=== PATIENT | female | born 1990 | race Caucasian/White ===

== ENCOUNTER 2018-07-09 12:22 | Observation (INO) ==
[2018-07-09 13:31] LABS: Amphetamine Screen,Urine Negative ng/mL (Cutoff=1000); Barbiturate Screen,Urine Negative ng/mL (Cutoff=200); Benzodiazepines Screen,Urine Negative ng/mL (Cutoff=200); Cannabinoid Screen,Urine Negative ng/mL (Cutoff = 50); Cocaine Screen,Urine Negative ng/mL (Cutoff= 300); Opiate Screen,Urine Negative ng/mL (Cutoff=300); Phencyclidine Screen,Urine Negative ng/mL (Cutoff=25)
== END 2018-07-09 15:35 | disposition home or self-care (01) ==
LOC: 1NENULAB
PROVIDERS: ADMIT Obstetrics & Gynecology; ATTEND Obstetrics & Gynecology

== ENCOUNTER 2018-07-16 07:55 | Inpatient (IN) ==
[2018-07-16] MEDS ORDERED: Metoclopramide 10 MG/2 ML VIAL IVP PRN (09:08)
[2018-07-16] MEDS ORDERED: Naloxone 0.4 MG/ML INJ IVP PRN (09:08)
[2018-07-16] MEDS ORDERED: Lidocaine 1% 20 ML MDV INFILT PRN (09:08)
[2018-07-16] MEDS ORDERED: Famotidine 20 MG/2 ML VIAL IVP PRN (09:08)
[2018-07-16] MEDS ORDERED: Ondansetron 4 MG/2 ML VIAL IVP PRN (09:08)
[2018-07-16] MEDS ORDERED: *HR* Nalbuphine 10 MG/ML AMPUL IVP PRN (09:08)
[2018-07-16] MEDS ORDERED: Ringers Solution, Lactated 1,000 ML IVC SCH (09:15)
[2018-07-16 09:30] LABS: Basophils % 0.2 %; Eosinophils # 0.1 K/mcL (0.0-0.6); Eosinophils % 0.6 %; Hematocrit 36.8 % (35.3-44.9); Hemoglobin 12.7 g/dL (11.5-15.4); Immature Granulocytes % 0.6 % (0-4); Lymphocytes # 1.9 K/mcL (0.6-4.6); Lymphocytes % 15.1 %; Mean Corpuscular HGB Conc 34.5 g/dL (31.6-35.5); Mean Corpuscular Hemoglobin 31.9 pg (28.0-33.3); Mean Corpuscular Volume 92.5 fL (83.0-100.0); Mean Platelet Volume 11.5 fL (9.4-12.4); Monocytes # 0.8 K/mcL (0.0-1.3); Monocytes % 6.4 %; Neutrophils # 9.6 K/mcL (1.6-8.9); Platelet Count 218 K/mcL (140-400); Red Blood Count 3.98 M/mcL (3.82-4.97); Red Cell Distribution Width 12.9 % (11.5-14.5); Segmented Neutrophils % 77.1 %
[2018-07-16 09:43] LABS: Amphetamine Screen,Urine Negative ng/mL (Cutoff=1000); Barbiturate Screen,Urine Negative ng/mL (Cutoff=200); Benzodiazepines Screen,Urine Negative ng/mL (Cutoff=200); Cannabinoid Screen,Urine Negative ng/mL (Cutoff = 50); Cocaine Screen,Urine Negative ng/mL (Cutoff= 300); Opiate Screen,Urine Negative ng/mL (Cutoff=300); Phencyclidine Screen,Urine Negative ng/mL (Cutoff=25)
--- NOTE | 2018-07-16 09:56 | Anesthesia Evaluation PreOp ---
Date of Encounter: 07/16/18 Time of Encounter: 09:54 - Past History Planned Operation: YOLIE Cardiac History: Denies any Significant Hx Pulmonary History: Former smoker [employer] DEVELOPER History: Denies Any Significant HX Other Medical History: Denies Any Significant HX Anesthesia History: No Prior Anesthetic Complications (never had any procedure requiring NA; denies personal and family h/o GA complications) : Yes Alcohol Use: none Drug use: marijuana Medications and Allergies One Tablet 1 tab PO DAILY 04/16/18 [History] 3 Allergy/AdvReac Type Severity Reaction Status Date / Time No Known Allergies Allergy Verified 04/16/18 12:22 - Meds/Allergy Pre-op Review Medications Reviewed: Yes Allergies Reviewed: Yes Beta Blockers on Current Med List: No Anesthesia Results - Labs 07/16/18 08:52 Anesthesia Exam 130/82, HR 80, RR 16 O2 Sat Height 1.6 m Weight 94.3 kg Vital Signs Temp Pulse Resp BP 97.1 F L 90 15 135/91 07/16/18 08:11 07/16/18 08:11 07/16/18 08:11 07/16/18 08:11 NPO (# of Hours): since 07/16/2018 @0700 Pain Scale: 0 Pain Scale Used: Numeric (1 - 10) - HEENT Pupil (Motor): Pupils equal Mallampati: I Teeth: Normal Oral Opening: Greater than 3 - [employer] DEVELOPER LOC: Oriented [employer] Motor: Normal RUE, Normal LUE, Normal RLE, Normal LLE, Normal Face [employer] Sensory: Normal: RUE, LUE, RLE, LLE, Face - Cardiac Rhythm: Regular Murmur: None - Pulmonary Breath Sounds: bilateral Clear Respiratory Effort: Symmetrical Anesthesia Assess/Plan ASA Score: 2 Modified Livia Scale for Level of Consciousness: Cooperative, oriented, and tranquil Anesthetic Plan: Regional Autologous Blood: No Monitoring Plan: Standard Monitors Recovery Plan: Other
[2018-07-16] MEDS ORDERED: Bupivacaine-MPF 0.25% 10 ML VIAL EP ONE (09:57)
[2018-07-16] MEDS ORDERED: *HR* FentaNYL (PF) 100 MCG/2 ML VIAL EP ONE (09:57)
[2018-07-16] MEDS: miSOPROStol 100 MCG TABLET PO PRN ×2 (09:58→15:43)
[2018-07-16] MEDS ORDERED: Epidural Premix (fent/bupiv) 110 ML EP SCH (10:00)
[2018-07-16] MEDS ORDERED: Lidocaine -MPF 1% 5 ML AMPUL ONE (10:05)
--- NOTE | 2018-07-16 10:40 | OB/GYN History & Physical ---
Date of Encounter: 07/16/18 Time of Encounter: 10:34 Assessment and Plan (1) Encounter for induction of labor Current visit: Yes Status: Acute Cytotec initiated Pain management as necessary Plan for (2) 40 weeks gestation of Current visit: Yes Status: Acute Post date induction History of Present Illness HPI: Ms. Melendrez is a 28 year old female with care by Dr. Briscoe who presents at 40 weeks for post term induction of labor. She has a history of intermittent elevated blood pressure requiring no medications. Takes only a vitamin. States she believes she lost her mucus plug last night but no other vaginal bleeding or fluid leakage. Reports good movement. Denies headache, visual changes or worsening edema. Had right hand surgery without anesthesia complications. GBS negative O positive Varicella/Rubella immune Other serologies negative Past Med Surg Social Fam HX - Past Medical History Attestation: Yes The following information was validated with the patient. Source: old records reviewed Medical history: no medical history Psychiatric history: no psych history - Past Surgical History Additional surgical history: right hand middle finger tendon repair - Social History Smoking Status: Former smoker Smokeless Tobacco Status: No Alcohol use: none Drug use: marijuana - Family History Mother Adopted: No Family Member Ethnicity: Non- Living Status: Still Living Hx Family Cardiac Disorders: No Hx Family Respiratory Disorders: No Hx Family Cancer: No Hx Family GI Disorders: No Hx Family Genitourinary Disorders: No Hx Family Endocrine Disorder: No Hx Family Musculoskeletal Disorders: No Hx Family Neuromuscular Disorders: No Hx Family Neurologic Disorders: No Hx Family HEENT Disorders: No Hx Family Autoimmune Disorders: No Hx Family Reproductive Disorders: No Hx Family Psychosocial Disorders: No Hx Family Medical Disorders: No Obstetrical History - Pregnancies : 1 Medications and Allergies One Tablet 1 tab PO DAILY 04/16/18 [History] 3 Allergy/AdvReac Type Severity Reaction Status Date / Time No Known Allergies Allergy Verified 04/16/18 12:22 Review of System OB All systems PM: reviewed and no additional remarkable complaints except as stated Exam - Vital Signs Vital signs: Initial Vital Signs Temp Pulse Resp BP 97.1 F L 90 15 135/91 07/16/18 08:11 07/16/18 08:11 07/16/18 08:11 07/16/18 08:11 - Constitutional Constitutional: well developed, well nourished, no acute distress, average body habitus - HEENT HEENT: Normocephaly, Mucus Membranes Moist - Lungs Respiratory exam: CTAB - Cardiovascular Cardiovascular exam: RRR, +S1, +S2 - Abdomen Abdomen: Present: bowel sounds normal, gravid, non tender - Extremities Deep Tendon Reflex Grade: 2+ Normal - Cervix Dilation: 0 (per RN) Effacement: 0 (per RN) Station: -2 - Uterus Uterus exam: Present: normal size Results Result Diagrams: 07/16/18 08:52 Abnormal lab results WBC 12.4 K/mcL (4.3-11.1) H 07/16/18 08:52 Neutrophils # 9.6 K/mcL (1.6-8.9) H 07/16/18 08:52 All other labs normal. - VTE Reasons for not Prescribing Prophylaxis: Treatment not Indicated - Low risk for VTE - Attending Attestation I examined this patient and my medical decision-making was reviewed with the Resident Physician. I agree with the documented findings, disposition and treatment plan as described except to the extent set forth below. Jefferson Torres
--- NOTE | 2018-07-16 12:33 | OB Labor Progress Note ---
Date of Encounter: 07/16/18 Time of Encounter: 12:31 Labor Progress Note - Cervix Cervix: FT/25 / -2 - Heart Tones Heart Tones: CAT 1 - Interventions Interventions: Continue induction
--- NOTE | 2018-07-16 14:33 | OB Labor Progress Note ---
Date of Encounter: 07/16/18 Time of Encounter: 14:30 Labor Progress Note - Subjective Subjective: Patient breathing through contractions - Vital Signs Vital Signs: VSS - Cervix Cervix: 1/80/-2 - Heart Tones Heart Tones: Baseline 135 - Category I - Donovan Donovan: Contractions every 2 - 4 minutes palpate mild to moderate - Interventions Interventions: Intracervical castillo placed without difficulty - 45 mL of sterile water infused. Patient and fetus tolerated well. - Plan Plan: Continue routine labor management GBS negative Patient may have nubain/epidural upon request Consider AROM vs pitocin for augmentation after castillo removed Anticipate vaginal delivery POC per consult with Dr Briscoe
--- NOTE | 2018-07-16 18:57 | Anesthesia Procedures ---
Date of Encounter: 07/16/18 Time of Encounter: 18:40 Procedures: Anesthesia - Epidural/Spinal Patient ID/Chart reviewed: Yes Patient examined: Yes OB Eval: Gestational age: 40 weeks 4 days OB Eval: : 1 OB Eval: Hx Para: 0 OB Eval: Dilated at (cm): 4 OB Eval: Contractions: Non-stressed pattern Consent Obtained: Yes Supplemental Oxygen: None/Room Air Site Prep: Aseptic Technique, Sterile prep and drape, Povidone-Iodine 1% Patient position: upright Local Anesthetic: Lidocaine 1% Amount of Local Anesthetic used: 8 Touhy Needle Gauge: 18 Touhy Needle Depth (cm): 5 Catheter Depth at Skin (cm): 10 Test Dose (1.5% Lido + Epi): Volume given (mls): 5 Test Dose Result: Negative Loading Dose: 0.25% Marcaine (mls): 5 Loading Dose: Fentanyl (mcg): 100 Loading Dose Administered: Thru Catheter Infusion Med: 0.125% Bupivacaine w/ 2 mcg/ml Fentanyl Infusion Rate (mls/hr): 14 (w/ demand bolus of 5mL q30min PRN) Catheter Secured in Place: Tegaderm, Tape Interspace Used: L4-L5 Loss of Resistance (PAYAL): Yes Blood: No CSF: No Paresthesia: No Procedure: successful on 2nd attempt at L4/5 interspace; patient tolerated procedure well; VSS Vitals + FHT's: please see Shani MILTON's electronic records for VS entry
[2018-07-16] MEDS ORDERED: *HR* Phenylephrine 10 MG/ML VIAL ONE (19:20)
[2018-07-16] MEDS ORDERED: Oxytocin 20 units/ LR 1000 mL 20 UNIT/1,000 ML BAG IVC SCH (20:00)
--- NOTE | 2018-07-16 20:44 | OB Labor Progress Note ---
Date of Encounter: 07/16/18 Time of Encounter: 20:38 Labor Progress Note - Subjective Subjective: Patient resting comfortably in bed. - Vital Signs Vital Signs: VSS - Cervix Cervix: 6-7/80/-2 - Heart Tones Heart Tones: 155 moderate variability with accels - discussed tracing with Dr Briscoe - [place]: Contractions every 2-4 minutes - Interventions Interventions: AROM for moderate amount of moderate stained meconium fluid. IUPC and FSE placed without difficulty; fetus and patient tolerated well. - Plan Plan: Continue with routine labor management GBS negative Titrate pitocin for adequate labor Anticipate vaginal delivery POC per consult with Dr Briscoe
--- NOTE | 2018-07-16 21:03 | Anesthesia Progress Note ---
Date of Encounter: 07/16/18 Time of Encounter: 21:01 Anesthesia Note - Note Note: called to patient's bedside to evaluate breakthrough pain. A total of 15mL of 0.2% ropivicaine + 100mcg fentanyl required to make patient have significant improvement in pain score. VSS 07/16/18 21:01
[2018-07-17] MEDS ORDERED: Terbutaline 1 MG/ML VIAL SQ ONE (01:32)
[2018-07-17] MEDS ORDERED: Chloroprocaine/PF 20 ML VIAL INFILT ONE ×2 (01:43→02:12)
[2018-07-17] MEDS ORDERED: *HR* FentaNYL (PF) 100 MCG/2 ML VIAL ONE (01:44)
--- NOTE | 2018-07-17 01:52 | OB Labor Progress Note ---
Date of Encounter: 07/17/18 Time of Encounter: 01:40 Labor Progress Note - Cervix Cervix: 6-790/-1 - Heart Tones Heart Tones: CAT 2 - Plan Plan: Will procede with 1' LTCS . R/B discussed .
[2018-07-17] MEDS ORDERED: *HR* Midazolam HCl 2 MG/2 ML VIAL ONE (02:31)
[2018-07-17] MEDS ORDERED: Ondansetron 4 MG/2 ML VIAL IVP PRN ×2 (02:42→05:36)
[2018-07-17] MEDS ORDERED: Acetaminophen IV 1,000 MG/100 ML INFUS..BTL IVPB ONE (02:42)
[2018-07-17] MEDS ORDERED: Naloxone 0.4 MG/ML INJ IVP PRN ×2 (02:42→05:57)
[2018-07-17] MEDS ORDERED: *HR* Promethazine 25 MG/ML VIAL IVP PRN (02:42)
[2018-07-17] MEDS ORDERED: *HR* Phenylephrine 10 MG/ML VIAL ONE (02:53)
[2018-07-17] MEDS ORDERED: *HR* Oxytocin 10 UNIT/ML VIAL IM ONE (02:54)
[2018-07-17] MEDS ORDERED: *HR* Morphine Sulfate/PF 10 MG/10 ML AMPUL ONE (03:13)
--- NOTE | 2018-07-17 03:34 | OB/GYN Procedure Note ---
Section - Date of procedure: 07/17/18 Preop diagnosis: category 2 FHT tracing Post-op diagnosis: same Procedure: primary low transverse Surgeon: Jefferson Torre Blood Loss: 500 Was there an assisted living assistant present: Yes Carburetor Mechanic: Angelica Rodriguez Anesthesiologist: Ugo Alejandra Anesthesia Type: Epidural section complications: none Disposition: PACU Specimens: Placenta - Infant (s) Infant A Infant Delivery Date: 07/17/18 Delivery Time: 02:29 Presentation: vertex Position: BOOGIE Gender: Male Viability: Viable Pounds: 7 Ounces: 15 at 1 minute: 8 at 5 minutes: 9 Specimens collected: cord blood Placenta: complete extraction - Narrative Narrative: Patient was taken to the operating room. She was prepped and draped in usual manner. After appropriate timeout, abdomen was entered through standard Maylard incision. The Peggy retractor was placed. Peritoneum overlying the lower uterine segment was incised in U-shaped fashion. Uterine cavity was entered sharply and extended laterally. Fluid was meconium-stained. With fundal pressure, the head was delivered. suctioned upon delivery of the head. The remainder of the infant was delivered. The umbilical cord doubly clamped and cut and the infant was handed to nursery staff for further evaluation. Placenta was removed and sent to pathology for analysis. Uterus was closed with 0 Monocryl in a single layer. After assurance of hemostasis, the retractor was removed. The abdomen was closed standard fashion using 0 PDS on the fascia and 3-0 Monocryl in the skin. Sterile dressing was applied. Patient taken to recovery in satisfactory condition. Counts were correct.
[2018-07-17] MEDS: *HR* HYDROmorphone (PF) 1 MG/ML SYRINGE IVP PRN ×2 (03:45→04:10)
[2018-07-17] MEDS ORDERED: Acetaminophen 325 MG TABLET PO PRN (05:36)
[2018-07-17] MEDS ORDERED: Sennosides 8.6 MG TABLET PO PRN (05:36)
[2018-07-17] MEDS ORDERED: Simethicone 80 MG TAB.CHEW PO PRN (05:36)
[2018-07-17] MEDS ORDERED: Oxytocin 20 units/ LR 1000 mL 20 UNIT/1,000 ML BAG IVC SCH (05:36)
[2018-07-17] MEDS ORDERED: Metoclopramide 10 MG/2 ML VIAL IVP PRN (05:36)
--- NOTE | 2018-07-17 05:58 | Anesthesia Evaluation Post Op ---
Date of Encounter: 07/17/18 Time of Encounter: 05:58 - Vital Signs Vital Signs: Vital Signs/O2 Sat, Most Current Temp Pulse Resp BP Pulse Ox 98.1 F 81 16 119/66 98 07/17/18 05:30 07/17/18 05:30 07/17/18 05:30 07/17/18 05:30 07/17/18 05:30 - Lungs Lungs: Clear Ascult./Percussion - Airway Airway: Non-obstructed - Cardiovascular Regular Rate - Mental Status Mental Status: Alert & Oriented, Answers Appropriately - Pain Pain Scale: 0 Pain Scale used: Numeric (1 - 10) - Nausea Vomiting Nausea Vomiting: Not Present - Hydration Hydration: NPO, Has not voided - Discharge PostOp Status: Transfer Patient to floor
[2018-07-17] MEDS: *HR* OxyCODONE/APAP 5/325 TABLET PO PRN ×4 (07:22→21:38)
[2018-07-17] MEDS: Prenatal Vit/FA 1 EACH TABLET PO SCH (09:02)
[2018-07-17] MEDS: Ibuprofen 600 MG TABLET PO PRN ×3 (09:04→22:02)
[2018-07-18] MEDS: *HR* OxyCODONE/APAP 5/325 TABLET PO PRN ×5 (03:07→22:15)
[2018-07-18] MEDS: Ibuprofen 600 MG TABLET PO PRN ×3 (04:57→21:31)
[2018-07-18 06:46] LABS: Basophils % 0.1 %; Eosinophils # 0.1 K/mcL (0.0-0.6); Eosinophils % 0.7 %; Hematocrit 22.9 % (35.3-44.9); Immature Granulocytes % 0.7 % (0-4); Lymphocytes % 16.4 %; Mean Corpuscular HGB Conc 33.6 g/dL (31.6-35.5); Mean Corpuscular Hemoglobin 31.7 pg (28.0-33.3); Mean Corpuscular Volume 94.2 fL (83.0-100.0); Mean Platelet Volume 10.5 fL (9.4-12.4); Monocytes # 0.8 K/mcL (0.0-1.3); Monocytes % 6.6 %; Neutrophils # 9.2 K/mcL (1.6-8.9); Platelet Count 163 K/mcL (140-400); Red Blood Count 2.43 M/mcL (3.82-4.97); Red Cell Distribution Width 13.3 % (11.5-14.5); Segmented Neutrophils % 75.5 %
[2018-07-18 07:08] LABS: Hemoglobin 7.7 g/dL (11.5-15.4)
[2018-07-18] MEDS: Prenatal Vit/FA 1 EACH TABLET PO SCH (08:02)
--- NOTE | 2018-07-18 09:41 | OB/GYN Progress Note ---
Date of Encounter: 07/18/18 Time of Encounter: 09:38 - Assessment and Plan (1) Status post delivery Current Visit: Yes Status: Acute Stable POD1 Pain management Anticipate discharge tomorrow (2) Low hemoglobin Current Visit: Yes Status: Acute Down from 12.7 to 7.7 today. Patient asymptomatic, vital signs stable but will recheck at noon today Iron supplementation, will likely require continuance after discharge Subjective - Subjective Interval history: POD1 s/p due to Category II tracing. Doing well. Has been voiding, eating, and drinking well. Bonding well with baby and attempting to breastfeed but believes she will switch to bottle feeding. States she has had flatus but no bowel movement yet. Pain well controlled, vaginal bleeding decreasing. Ambulating without lightheadedness, dizziness, but does feel fatigued which she attributes to having 20 visitors yesterday. Patient reports: appetite normal, voiding normally, pain well controlled, ambulating normally [place]: doing well Objective - Vital Signs Latest vital signs: Vital Signs Temp Pulse Pulse Resp BP Pulse Ox 07/18/18 08:03 98.0 F 85 16 110/69 07/18/18 03:20 98.1 F 81 16 91/59 98 07/17/18 22:02 98.6 F 96 16 113/81 96 07/17/18 21:35 96 07/17/18 16:03 98.3 F 99 16 109/75 07/17/18 12:00 98.0 F 88 16 125/73 Intake and Output 07/17/18 07/18/18 07/18/18 23:59 07:59 15:59 Intake Total 1540 / 1540 Output Total 300 / 300 500 / 500 800 / 800 Balance 1240 / 1240 -500 / -500 -800 / -800 Intake: Oral 1540 / 1540 Output: Urine 300 / 300 500 / 500 800 / 800 Other: Meal Dinner Percent of Meal Consumed 50% Weight 91.58 kg Patient Weight 07/18/18 23:59 Weight 91.58 kg - Exam Lungs: bilateral: normal Chest: Normal S1, Normal S2 Extremities: Present: normal Abdomen: Present: normal appearance, soft Incision: Present: normal, dry, dressed Uterus: Present: normal, firm (at umbilicus) Comments: normal skin turgor and appearance. I examined this patient and my medical decision-making was reviewed with the Resident Physician. I agree with the documented findings, disposition and treatment plan as described except to the extent set forth below. Karo Evans CNM - Labs Labs: Laboratory Results - last 24 hr 07/18/18 06:26 WBC 12.2 H RBC 2.43 L Hgb 7.7 L D Hct 22.9 L MCV 94.2 MCH 31.7 MCHC 33.6 RDW 13.3 Plt Count 163 MPV 10.5 Immature Gran % 0.7 Seg Neutrophils % 75.5 Lymphocytes % 16.4 Monocytes % 6.6 Eosinophils % 0.7 Basophils % 0.1 Neutrophils # 9.2 H Lymphocytes # 2.0 Monocytes # 0.8 Eosinophils # 0.1 Basophils # 0.0 - Allied health notes Allied health notes reviewed: social work
[2018-07-18 13:13] LABS: Hematocrit 26.5 % (35.3-44.9)
[2018-07-19] MEDS: Ibuprofen 600 MG TABLET PO PRN ×2 (03:52→10:24)
[2018-07-19] MEDS: *HR* OxyCODONE/APAP 5/325 TABLET PO PRN ×2 (05:30→10:24)
[2018-07-19] MEDS: Prenatal Vit/FA 1 EACH TABLET PO SCH (07:48)
[2018-07-19 08:00] VITALS: BP 111/64
--- NOTE | 2018-07-19 09:50 | Discharge Summary ---
Date of Encounter: 07/19/18 Time of Encounter: 09:47 - Discharge Diagnosis (1) Status post delivery Priority: Primary Status: Acute (2) Low hemoglobin Priority: Secondary Status: Acute - Discharge Medications Prescriptions: OxyCODONE/APAP 5/325 [Percocet 5/325 MG] 1 each PO Q4HR PRN 5 Days #20 tablet PRN Reason: Severe Pain Ibuprofen [Motrin] 600 mg PO Q6HR PRN 14 Days #56 tablet PRN Reason: Cramping Docusate [Colace] 100 mg PO BID 30 Days #60 capsule Ferrous Sulfate 325 mg PO BIDWM 30 Days #60 tablet Home Medications: Docusate [Colace] 100 mg PO BID 30 Days #60 capsule 07/19/18 [Rx] Ferrous Sulfate 325 mg PO BIDWM 30 Days #60 tablet 07/19/18 [Rx] Ibuprofen [Motrin] 600 mg PO Q6HR PRN 14 Days #56 tablet 07/19/18 [Rx] OxyCODONE/APAP 5/325 [Percocet 5/325 MG] 1 each PO Q4HR PRN 5 Days #20 tablet [Rx] Allergies/Adverse Reactions: 3 Allergy/AdvReac Type Severity Reaction Status Date / Time No Known Allergies Allergy Verified 04/16/18 12:22 Data Procedures and tests throughout hospitalization: Laboratory Tests 07/16/18 07/16/18 07/18/18 08:52 08:52 06:26 WBC 12.4 H 12.2 H RBC 3.98 2.43 L Hgb 12.7 7.7 L D Hct 36.8 22.9 L MCV 92.5 94.2 MCH 31.9 31.7 MCHC 34.5 33.6 RDW 12.9 13.3 Plt Count 218 163 MPV 11.5 10.5 Immature Gran % 0.6 0.7 Seg Neutrophils % 77.1 75.5 Lymphocytes % 15.1 16.4 Monocytes % 6.4 6.6 Eosinophils % 0.6 0.7 Basophils % 0.2 0.1 Neutrophils # 9.6 H 9.2 H Lymphocytes # 1.9 2.0 Monocytes # 0.8 0.8 Eosinophils # 0.1 0.1 Basophils # 0.0 0.0 Urine Opiates Screen Negative Ur Barbiturates Screen Negative Ur Phencyclidine Scrn Negative Ur Amphetamines Screen Negative U Benzodiazepines Scrn Negative Urine Cocaine Screen Negative U Marijuana (THC) Screen Negative Ur Drug Screen Interp See Below 07/18/18 13:02 WBC RBC Hgb 9.0 L Hct 26.5 L MCV MCH MCHC RDW Plt Count MPV Immature Gran % Seg Neutrophils % Lymphocytes % Monocytes % Eosinophils % Basophils % Neutrophils # Lymphocytes # Monocytes # Eosinophils # Basophils # Urine Opiates Screen Ur Barbiturates Screen Ur Phencyclidine Scrn Ur Amphetamines Screen U Benzodiazepines Scrn Urine Cocaine Screen U Marijuana (THC) Screen Ur Drug Screen Interp Labs on day of discharge: Labs from last 24 hours 07/18/18 13:02 Hgb 9.0 L Hct 26.5 L Date of admission: 07/16/18 07:55 Primary care physician: PCP SRINI Discharging clinician: Angelica Rodriguez Anticipated date of discharge: 07/19/18 - Patient Status Disposition: Home, Self-Care Functional capacity at discharge: independent ambulation Overall status at discharge: patient is progressing back to baseline - Discharge Instructions Follow Up With: SRINI,PCP [Primary Care Provider] - Socorro Capps [Family Provider] - Jefferson Briscoe MD [Partnered Physician] - Additional Instructions: - Follow up with Dr. Briscoe on 07/30/18. - Take Motrin 600mg every 6 hours for pain. Take percocet 5mg only as needed for breakthrough pain. Continue to take iron supplement twice daily with vitamin c (orange or apple juice) and docusate, which is a stool softener. - Contact the office should you develop any large vaginal bleeding, lightheadedness, fatigue, feelings of hopelessness or worthlessness, inability to loya with baby, or concern for infection of your surgical site. - No driving while on pain medications and until fully healed. - Nothing vaginally for the next 6 weeks as you continue to heal. - Diet and Activity Activity: increase activity as tolerated Diet: advance to your usual diet Hospital Course Procedures: Section - Date of procedure: 07/17/18 Preop diagnosis: category 2 FHT tracing Post-op diagnosis: same Procedure: primary low transverse Surgeon: Jefferson Briscoe Quantitated Blood Loss: 500 Was there an assistant engineer present: Yes Diamond Finishing Supervisor: Angelica Rodriguez Anesthesiologist: Ugo Alejandra Anesthesia Type: Epidural section complications: none Disposition: PACU Specimens: Placenta - (s) Infant A Delivery Date: 07/17/18 Infant Delivery Time: 02:29 Presentation: vertex Position: BOOGIE Gender: Male Viability: Viable Pounds: 7 Ounces: 15 at 1 minute: 8 at 5 minutes: 9 Specimens collected: cord blood Placenta: complete extraction - Narrative Narrative: Patient was taken to the operating room. She was prepped and draped in usual manner. After appropriate timeout, abdomen was entered through standard Maylard incision. The Peggy retractor was placed. Peritoneum overlying the lower uterine segment was incised in U-shaped fashion. Uterine cavity was entered sharply and extended laterally. Fluid was meconium-stained. With fundal pressure, the head was delivered. suctioned upon delivery of the head. The remainder of the was delivered. The umbilical cord doubly clamped and cut and the infant was handed to nursery staff for further evaluation. Placenta was removed and sent to pathology for analysis. Uterus was closed with 0 Monocryl in a single layer. After assurance of hemostasis, the retractor was removed. The abdomen was closed standard fashion using 0 PDS on the fascia and 3-0 Monocryl in the skin. Sterile dressing was applied. Patient taken to recovery in satisfactory condition. Counts were correct. Reason for admission: induction of labor Delivery: section Other procedures: none complications: none Discharge diagnosis: post term preg-delivered (via ) baby: male Hospital course: 28 year old female with care by Dr. Briscoe who presented on at 40 weeks for post term induction of labor. She progressed and eventually required section due to Category II FHT. She delivered a viable male infant on 07/17/18 without complication. POD1 her hemoglobin dropped to 7.7 with repeat level of 9.0. Patient is asymptomatic and taking Iron tablets twice daily. POD2 she is up and active, pain is well controlled and she is ready to go home. She is eating, drinking, and ambulating well. Vaginal bleeding improving. She will be discharged with pain control of ibuprofen 600mg and Percocet 5mg along with docusate and iron tablets. Declines control at this time. MAGDA dressed to be removed on POD7. Return precautions given including feelings of worthlessness or hopelessness, inability to loya with baby , increased vaginal bleeding, or infection from surgical site. Follow up [address] Briscoe on 07/30/18. All questions answered and addressed. Patient agrees with and understands plan for discharge and follow up. Time Attestation: Total time spent providing and/or coordinating discharge services: Time Spent: Less than 30 minutes - VTE Reasons for not Prescribing Prophylaxis: Treatment not Indicated - Low risk for VTE Documentation of Mechanical Device: Intermittent pneumatic compression device - Attending Attestation I examined this patient and my medical decision-making was reviewed with the Resident Physician. I agree with the documented findings, disposition and treatment plan as described except to the extent set forth below. VIRGIL Da Silva Exam - Constitutional Vitals: Temp Pulse Resp BP Pulse Ox 98.4 F 68 16 111/64 98 07/19/18 07:59 07/19/18 07:59 07/19/18 07:59 07/19/18 07:59 07/18/18 21:28 General appearance IM: A&O X 3, pleasant, no acute distress, answers questions appropriately - Respiratory Respiratory exam: Present: CTAB - Cardiovascular Cardiovascular exam IM: Present: RRR, +S1, +S2. Absent: tachycardia - GI/Abdominal Incision: normal, dry, dressed (with MAGDA) - Uterine Tone: Firm Uterus Position: 1 Finger Below Umbilicus, Midline - Extremities Exam Extremities exam IM: Absent: pedal edema - Neurological Exam Neurological exam: alert, normal gait, oriented X3 - Psychiatric Additional comments: States her mood is "good"
== END 2018-07-19 11:35 | disposition home or self-care (01) | DRG 540 ==
LOC: 1NENULAB 07:55 → 1NENUOBS 07-17 06:37
PROVIDERS: ADMIT Obstetrics & Gynecology; ATTEND Obstetrics & Gynecology